=== PATIENT | female | born 1955 | race Caucasian/White ===

== ENCOUNTER 2021-10-08 19:21 | Inpatient (IN) | payer OTHER, MEDICAID ==
[~2021-10-08] VITALS: Ht 175.3 cm; Wt 99.8 kg
--- NOTE | ~2021-10-08 | CON ---
[address] [address] CONSULTATION Name: SUNITA VENEGAS Room: [address] IN M.R.#: [id number] Admission: 10/08/21 Attend Phys: Sandro Olivo Discharge: Date of : 55 Report #: [id number] THIS REPORT FOR: cc: Scottie Sky Bradley L. DO Namin, Farid M. MD ~ cc: Scottie Sky DO DATE OF CONSULTATION: 10/09/2021 REQUESTING PHYSICIAN: Heath Cassidy MD REASON FOR CONSULTATION: Melena in stool and anemia. HISTORY OF PRESENT ILLNESS: This is a 65-year-old female who apparently had a syncopal episode at home. The patient was brought to Emergency Room with altered mental status. She was found to be anemic and was transfused with 2 units of packed RBC. She is currently hemodynamically stable. She is more alert and able to answer questions. She reports GERD, for which she takes etis-pwc-mphvgyr medication. She denies ever having any endoscopic evaluation. The patient also denies any abdominal pain, hematochezia, constipation or diarrhea. PAST MEDICAL HISTORY: Significant for history of diabetes mellitus, dyslipidemia, hypertension, back pain, coronary artery disease, status post stenting, gallbladder disease, status post cholecystectomy, umbilical hernia repair. ALLERGIES: SIGNIFICANT TO IBUPROFEN. SOCIAL HISTORY: The patient denies tobacco or alcohol use. FAMILY HISTORY: Noncontributory. PHYSICAL EXAMINATION: VITAL SIGNS: Reveals blood pressure of 140/69, respirations 16, pulse 102, temperature is 36.5 centigrade. GENERAL: The patient is stated age female who is somewhat confused, mildly tachycardic, but otherwise hemodynamically stable. ABDOMEN: Soft, nontender, nondistended. CARDIOVASCULAR: Regular rhythm, but tachycardic. LUNGS: Clear. NEUROLOGIC: The patient is alert, oriented, [place] [address] CONSULTATION Name: SUNITA VENEGAS Julee Room: [address]#: [id number] Admission: 10/08/21 Attend Phys: Sandro Olivo Discharge: Date of : 55 Report #: [id number] LABORATORY DATA: Reveal WBC of 16.6, hemoglobin 15.3, platelet is 233. INR is 1.2. Sodium 136, potassium 3.8, BUN is 65, creatinine 1.1, magnesium is 1.4, calcium 6.9, glucose 312. AST is 15, ALT 22, alkaline phosphatase 57, albumin is 2.2. IMAGING: CT of abdomen and pelvis was obtained. There is abdominal aortic aneurysm measuring 3 cm with some peripheral thrombus. There is no evidence of dissection or rupture. Right common iliac artery aneurysm with some peripheral thrombus also noted. There is moderate stenosis of the bifurcation of the bilateral common iliac arteries. There is high-grade stenosis or occlusion of the right superficial femoral artery at its origin. Diverticulosis was noted without any evidence of diverticulitis. ASSESSMENT AND PLAN: The patient with anemia requiring blood transfusion, who is hemodynamically stable. On admission, the patient's BUN and creatinine ratio was 65. This is suspect upper gastrointestinal bleed. We had started the patient on Protonix drip in the Emergency Room and we will proceed with upper endoscopy. We will treat causes of upper GI bleed once established. The patient also has never had a colonoscopy. If we do not find source of bleeding today, we will consider colonoscopy tomorrow. Otherwise, we will do colonoscopy as outpatient. By: 1522 1920Werner Shin MD /nt
[~2021-10-08 19:21] MED LIST: ASPIR 8181 MG PO; BACTRIM DS TAB1 EACH PO; CENTRUM SILVER1 EAC2 PO; FENOFIBRATE160 MG PO; FISH OIL 1,001000 M2 PO; GLIPIZIDE 10 MG10 MG PO; GLUCOPHAGE1000 MG PO; LIPITOR10 MG PO; METOPROLOL SUCC50 MG PO; NIZORAL120 ML TP; VOLTAREN 0.1% EY5 M1 OP
[2021-10-08 19:24] VITALS: BP 131/62
[2021-10-08] MEDS ORDERED: NEURONTIN100 MG PO (19:33)
[2021-10-08] MEDS ORDERED: FLEXERIL PO (19:34)
[2021-10-08 20:04] LABS: MCH 29.3 pg (26.0-34.0); MCHC 32.7 g/dL (28.0-37.0); MCV 89.4 fL (80.0-100.0); MPV 8.8 fl. (7.2-11.1); NUCLEATED RBCS 1 /100WBC; PLATELET COUNT* 232 thou/uL (150-400); RDW-CV 14.4 % (10.5-14.5); WBC 16.6 thou/uL (4.0-11.0)
[2021-10-08 20:06] LABS: HEMATOCRIT 16.1 % (37.0-47.0)
[2021-10-08 20:07] LABS: HEMOGLOBIN 5.3 gm/dL (12.0-15.0)
[2021-10-08 20:12] LABS: CALCIUM 6.9 mg/dL (8.5-10.1); POTASSIUM 3.8 mmol/L (3.5-5.1)
[2021-10-08 20:13] LABS: ALBUMIN 2.2 g/dL (3.4-5.0); MAGNESIUM 1.4 mg/dL (1.8-2.4)
[2021-10-08 20:21] LABS: INFLUENZA A ANTIGEN Negative (Negative); INFLUENZA B ANTIGEN Negative (Negative)
[2021-10-08 20:43] LABS: TOTAL BILIRUBIN 0.2 mg/dL (<0.1-1.0); TOTAL PROTEIN 4.4 g/dL (6.4-8.2)
[2021-10-08 20:53] LABS: ABSOLUTE LYMPHOCYTES 4.5 thou/uL (0.8-5.3); ABSOLUTE MONOCYTES 0.7 thou/uL (0.0-1.2); ABSOLUTE NEUTROPHILS 11.5 thou/uL (1.6-8.1)
[2021-10-08 20:54] LABS: PLATELET ESTIMATE ADEQUATE; POLYCHROMASIA Occasional
[2021-10-08 20:55] LABS: MICROCYTES Occasional
[2021-10-08 21:48] LABS: INR 1.2; PROTIME 11.8 Seconds (9.20-11.50)
[2021-10-09] VITALS (8 sets, daily range): BP systolic 116–152; BP diastolic 54–74
[2021-10-09 01:57] LABS: HEMATOCRIT 19.7 % (37.0-47.0); HEMOGLOBIN 6.9 gm/dL (12.0-15.0)
[2021-10-09 05:40] LABS: HEMOGLOBIN 7.6 gm/dL (12.0-15.0)
[2021-10-09 06:15] LABS: HEMATOCRIT 22.2 % (37.0-47.0)
[2021-10-09] MEDS ORDERED: ZOCOR20 MG PO (09:22)
[2021-10-09] MEDS ORDERED: TRAMADOL 50 MG50 MG PO (09:23)
--- NOTE | 2021-10-09 11:13 | EKG ---
[place] [address] ELECTROCARDIOGRAM REPORT Name: SUNITA VENEGAS Room: [place] [address] ADM IN ..#: [id number] Admission: 10/08/21 Attend Phys: Lizzette Dominguez Discharge: Date of : 55 Date of Service: 10/08/211928 Report #: [id number] THIS REPORT FOR: //name// [facility] ED Test Date: 2021-10-08 Test Time: 19:29:07 Pat Name: SUNITA VENEGAS Department: Room: [facility] Gender: F Quick Service Technician: YUN : 1955 Requested By: Alanis Ashley Order Number: [id number] MD: Niall Marquez Measurements Intervals [place] Rate: 112 P: GA: QRS: -26 QRSD: 98 T: 149 QT: 342 QTc: 467 Interpretive Statements Sinus rhythm at a mildly tachycardic rate Borderline left axis deviation Abnormal R-wave progression, early transition Nonspecific T abnormalities, lateral leads No previous ECG available for comparison Electronically Signed On 10-09-2021 11:13:28 STRENGTH AND CONDITIONING COACH by Niall Marquez [email or web address] <ELECTRONICALLY SIGNED> By: Niall Marquez MD, FAC 10/09/21 1113 28 28 Niall Marquez MD, FAC /EPI
[2021-10-10] VITALS (7 sets, daily range): BP systolic 107–160; BP diastolic 51–67
[2021-10-10 05:13] LABS: URINE BILIRUBIN NEGATIVE (Negative); URINE BLOOD TRACE (Negative); URINE CLARITY CLEAR; URINE COLOR YELLOW; URINE GLUCOSE-RANDOM TRACE (Negative); URINE KETONES TRACE (Negative); URINE LEUKOCYTES-REFLEX NEGATIVE (Negative); URINE NITRITE-REFLEX NEGATIVE (Negative); URINE PROTEIN NEGATIVE (Negative); URINE SPECIFIC GRAVITY 1.025 (1.005-1.030); URINE UROBILINOGEN 0.2 E.U./dl (0.2-1.0)
[2021-10-10 06:15] LABS: ABSOLUTE BASOPHILS 0.1 thou/uL (0.0-0.2); ABSOLUTE EOSINOPHILS 0.4 thou/uL (0.0-0.7); ABSOLUTE LYMPHOCYTES 3.1 thou/uL (0.8-5.3); ABSOLUTE MONOCYTES 0.9 thou/uL (0.0-1.2); ABSOLUTE NEUTROPHILS 7.4 thou/uL (1.6-8.1); BASOPHILS 0.5 %; EOSINOPHILS 3.1 %; HEMATOCRIT 20.5 % (37.0-47.0); LYMPHOCYTES 26.1 %; MCH 29.8 pg (26.0-34.0); MCHC 33.6 g/dL (28.0-37.0); MCV 88.9 fL (80.0-100.0); MONOCYTES 7.7 %; MPV 8.2 fl. (7.2-11.1); NUCLEATED RBCS 1 /100WBC; PLATELET COUNT* 273 thou/uL (150-400); POLYS 62.6 %; RBC 2.31 mil/uL (4.20-5.00); RDW-CV 14.7 % (10.5-14.5); WBC 11.8 thou/uL (4.0-11.0)
[2021-10-10 06:29] LABS: HEMOGLOBIN 6.9 gm/dL (12.0-15.0)
[2021-10-10 07:05] LABS: CALCIUM 8.2 mg/dL (8.5-10.1); CREATININE 0.8 mg/dL (0.6-1.3); POTASSIUM 3.5 mmol/L (3.5-5.1)
[2021-10-10 13:56] LABS: HEMATOCRIT 23.3 % (37.0-47.0); HEMOGLOBIN 7.9 gm/dL (12.0-15.0)
[2021-10-11] VITALS (7 sets, daily range): BP systolic 119–167; BP diastolic 57–73
[2021-10-11 09:48] LABS: ABSOLUTE BASOPHILS 0.1 thou/uL (0.0-0.2); ABSOLUTE EOSINOPHILS 0.3 thou/uL (0.0-0.7); ABSOLUTE LYMPHOCYTES 1.7 thou/uL (0.8-5.3); ABSOLUTE MONOCYTES 0.5 thou/uL (0.0-1.2); ABSOLUTE NEUTROPHILS 7.2 thou/uL (1.6-8.1); BASOPHILS 0.5 %; EOSINOPHILS 2.6 %; HEMATOCRIT 24.6 % (37.0-47.0); HEMOGLOBIN 8.3 gm/dL (12.0-15.0); LYMPHOCYTES 17.8 %; MCH 29.9 pg (26.0-34.0); MCHC 33.8 g/dL (28.0-37.0); MCV 88.6 fL (80.0-100.0); MONOCYTES 5.6 %; MPV 8.1 fl. (7.2-11.1); NUCLEATED RBCS 0 /100WBC; PLATELET COUNT* 303 thou/uL (150-400); POLYS 73.5 %; RBC 2.77 mil/uL (4.20-5.00); RDW-CV 15.1 % (10.5-14.5); WBC 9.8 thou/uL (4.0-11.0)
[2021-10-11 09:58] LABS: ALBUMIN 2.4 g/dL (3.4-5.0); CALCIUM 8.4 mg/dL (8.5-10.1); CREATININE 0.8 mg/dL (0.6-1.3); POTASSIUM 3.9 mmol/L (3.5-5.1); TOTAL BILIRUBIN 0.5 mg/dL (<0.1-1.0); TOTAL PROTEIN 5.2 g/dL (6.4-8.2)
[2021-10-12 04:34] VITALS: BP 136/65
[2021-10-12 05:07] LABS: ABSOLUTE EOSINOPHILS 0.4 thou/uL (0.0-0.7); ABSOLUTE LYMPHOCYTES 2.3 thou/uL (0.8-5.3); ABSOLUTE MONOCYTES 0.8 thou/uL (0.0-1.2); ABSOLUTE NEUTROPHILS 6.9 thou/uL (1.6-8.1); BASOPHILS 0.4 %; EOSINOPHILS 3.6 %; HEMATOCRIT 24.7 % (37.0-47.0); HEMOGLOBIN 8.6 gm/dL (12.0-15.0); LYMPHOCYTES 21.9 %; MCH 30.4 pg (26.0-34.0); MCV 86.9 fL (80.0-100.0); MONOCYTES 7.3 %; NUCLEATED RBCS 0 /100WBC; PLATELET COUNT* 331 thou/uL (150-400); POLYS 66.8 %; RBC 2.84 mil/uL (4.20-5.00); RDW-CV 15.2 % (10.5-14.5); WBC 10.3 thou/uL (4.0-11.0)
[2021-10-12 05:30] LABS: ALBUMIN 2.5 g/dL (3.4-5.0); CALCIUM 8.6 mg/dL (8.5-10.1); CREATININE 0.5 mg/dL (0.6-1.3); POTASSIUM 3.4 mmol/L (3.5-5.1); TOTAL BILIRUBIN 0.6 mg/dL (<0.1-1.0); TOTAL PROTEIN 5.3 g/dL (6.4-8.2)
[2021-10-12 08:00] VITALS: BP 150/74
[2021-10-12 13:33] VITALS: BP 150/78
[2021-10-12 16:21] VITALS: BP 149/82
[2021-10-12 20:00] VITALS: BP 151/76
[2021-10-13] VITALS: BP 141/61
[2021-10-13 04:00] VITALS: BP 141/74
[2021-10-13 08:00] VITALS: BP 148/90
[2021-10-13 12:00] VITALS: BP 141/79
--- NOTE | 2021-10-13 15:07 | PATH ---
[address] [address] PATHOLOGY RPT PROCEDURE Name: SUNITA ROCA Room: [address] IN .R.#: [id number] Admission: 10/08/21 Date of : 55 Discharge: Report #: [id number] Path Case #: [id number] [facility] Accession Number: [id number] . 01 Material submitted: . PART A: stomach - ANTRAL BIOPSY FOR H. PYLORI PART B: duodenum - DUODENAL ULCER BIOPSY . 01 Clinical history: . EGD IN OR . 02 Diagnosis: A. 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 . B. Duodenal ulcer biopsy: - Benign small intestinal mucosa with mild nonspecific active inflammation, negative for granulomas, viral inclusions and dysplasia. (MAURIZIO:charisse; 10/13/2021) . Special stain on A: H. pylori immuno QMS 10/13/2021 1322 Local . 02 Electronically signed: . Candido Teresa MD, Pathologist NPI- [id number] . 01 Gross description: . A. The specimen is received in formalin, labeled "Sunita Roca, antral biopsy for H. pylori". Received are 2 segments of pale adame tissue measuring 0.3 and 0.4 cm in maximum dimension. The specimen is entirely submitted in cassette A1. . B. The specimen is received in formalin, labeled "Sunita Roca, duodenal ulcer biopsy". Received is a single segment of pale adame tissue measuring 0.2 cm in maximum dimensions. The specimen is entirely submitted in cassette B1. ([facility]; 10/12/2021) NRI/NRI 10/12/2021 1553 Local . 02 Pathologist provided ICD-10: K29.50, K29.80 . 02 CPT . 527733, 822738, X45106 Specimen Comment: A courtesy copy of this report has been sent to [phone], [place] [address] PATHOLOGY RPT PROCEDURE Name: SUNITA ROCA Room: [address] IN [facility].#: [id number] Admission: 10/08/21 Date of : 55 Discharge: Report #: [id number] Path Case #: [id number] Specimen Comment: [id number], Specimen Comment: Report sent to , DR CARDOZO / DR ALLEN Performed at: [address] [facility] [address], [place], [place] [id number] MD Yogi Sales MD Phone: [phone] Performed at: [address] [facility] [address] [address], [place], [place] [id number] MD Candido Teresa MD Phone: [phone]
[2021-10-13 16:00] VITALS: BP 135/72
[2021-10-13 16:27] LABS: CHOLESTEROL 112 mg/dL (<200); HDL CHOLESTEROL 31 mg/dL (>40); LDL CHOLESTEROL 46 mg/dL (<100); TC:HDL 3.6 Ratio (Not establshd); TRIGLYCERIDE 177 mg/dL (<150); VLDL 35 mg/dL (<40)
[2021-10-13 16:28] LABS: SERUM ASSESSMENT Clear
[2021-10-13 20:00] VITALS: BP 148/78
[2021-10-14] VITALS: BP 145/68
[2021-10-14 04:29] VITALS: BP 148/72
[2021-10-14 08:27] VITALS: BP 143/75
[2021-10-14 10:37] LABS: ABSOLUTE BASOPHILS 0.1 thou/uL (0.0-0.2); ABSOLUTE EOSINOPHILS 0.3 thou/uL (0.0-0.7); ABSOLUTE LYMPHOCYTES 1.7 thou/uL (0.8-5.3); ABSOLUTE MONOCYTES 0.5 thou/uL (0.0-1.2); ABSOLUTE NEUTROPHILS 3.3 thou/uL (1.6-8.1); BASOPHILS 0.9 %; EOSINOPHILS 4.8 %; HEMATOCRIT 23.3 % (37.0-47.0); HEMOGLOBIN 7.9 gm/dL (12.0-15.0); LYMPHOCYTES 28.3 %; MCH 30.1 pg (26.0-34.0); MCHC 33.7 g/dL (28.0-37.0); MCV 89.2 fL (80.0-100.0); MONOCYTES 8.9 %; MPV 7.8 fl. (7.2-11.1); NUCLEATED RBCS 0 /100WBC; PLATELET COUNT* 358 thou/uL (150-400); POLYS 57.1 %; RBC 2.61 mil/uL (4.20-5.00); RDW-CV 15.6 % (10.5-14.5); WBC 5.8 thou/uL (4.0-11.0)
[2021-10-14 10:46] LABS: ALBUMIN 2.2 g/dL (3.4-5.0); CALCIUM 8.3 mg/dL (8.5-10.1); CREATININE 0.9 mg/dL (0.6-1.3); POTASSIUM 3.4 mmol/L (3.5-5.1); TOTAL BILIRUBIN 0.2 mg/dL (<0.1-1.0); TOTAL PROTEIN 4.9 g/dL (6.4-8.2)
[2021-10-14 12:00] VITALS: BP 139/79
[2021-10-14 17:41] VITALS: BP 144/75
[2021-10-14 20:00] VITALS: BP 136/75
[2021-10-15] VITALS: BP 149/72
[2021-10-15 04:00] VITALS: BP 159/81
[2021-10-15 07:58] VITALS: BP 153/80
[2021-10-15 08:41] VITALS: BP 153/80
--- NOTE | 2021-10-15 09:17 | EKG ---
[place] [address] ELECTROCARDIOGRAM REPORT Name: SUNITA VENEGAS Room: [address] ADM IN M.R.#: [id number] Admission: 10/08/21 Attend Phys: Lizzette Dominguez Discharge: Date of : 55 Date of Service: 10/15/21 0536 Report #: [id number] THIS REPORT FOR: //name// [facility] Test Date: 2021-10-15 Test Time: 05:36:22 Pat Name: SUNITA VENEGAS Department: Room: [address] Gender: F Goring Cutter: CJ : 1955 Requested By: Martínez Hewitt Order Number: [id number] Reading MD: Rogelio Ness Measurements Intervals [place] Rate: 89 P: 59 [place]: 185 QRS: -29 QRSD: 104 T: 47 QT: 384 QTc: 468 Interpretive Statements Sinus rhythm Ventricular premature complex Borderline left axis deviation Compared to ECG 10/08/2021 19:29:07 Ventricular premature complex(es) now present T-wave abnormality no longer present Electronically Signed On 10-15-2021 9:17:43 FOLDER STITCHER OPERATOR by Rogelio Ness [email or web address] <ELECTRONICALLY SIGNED> By: Rogelio Ness MD, FACC 10/15/21 0917 0536 0536 Rogelio Ness MD, FAC /EPI
[2021-10-15 11:16] LABS: HEMATOCRIT 25.4 % (37.0-47.0); HEMOGLOBIN 8.3 gm/dL (12.0-15.0); MCH 29.4 pg (26.0-34.0); MCHC 32.7 g/dL (28.0-37.0); MPV 8.3 fl. (7.2-11.1); RBC 2.82 mil/uL (4.20-5.00); RDW-CV 15.5 % (10.5-14.5); WBC 6.5 thou/uL (4.0-11.0)
[2021-10-15] MEDS ORDERED: PROTONIX40 M2 PO (12:07)
[2021-10-15] MEDS ORDERED: CARAFATE 1 GM TA1 G1 PO (12:07)
--- NOTE | 2021-10-16 11:37 | EEG ---
[address] [address] EEG STUDY REPORT Name: SUNITA VENEGAS Room: [address] IN .R.#: [id number] Admission: 10/08/21 Attend Phys: Sandro Olivo Discharge: 10/15/21 Date of : 55 Report #: [id number] THIS REPORT FOR: cc: Scottie Sky Bradley L. DO Khosla,Kevin Rogers MD ~ DATE OF SERVICE: 10/13/2021 This patient is being evaluated for altered mental status. EEG was done by placing the electrode by standard 10-20 system of electrode placement. Both referential and sequential montages were used for recording. Background activity in this patient's EEG is about 9 Hz and 20 microvolt. Photic stimulation is unremarkable. Large portion of this record was obtained when the patient was asleep and thus, associated with bilateral slowing and vertex sharp waves. Throughout the record, no active epileptiform activity was noticed. IMPRESSION: This patient's EEG is intermixed with some theta range slowing on both sides. This is a nonspecific abnormality which can occur with drowsiness effect of psychotropic medication, dementia, etc. Clinical correlation is recommended. <ELECTRONICALLY SIGNED> By: Kevin Harvey MD 10/16/21 1137 1208 1237Kevin Harvey MD /praful
== END 2021-10-15 12:15 | disposition left against medical advice (07) | DRG 377 ==
LOC: M.ERS 19:21 → M.TBA-ER 21:36 → M.TBA 10-09 15:00 → M.2W 10-09 18:05
PROVIDERS: Emergency Medicine; Internal Medicine; Psychiatry & Neurology Neuromuscular Medicine; ADMIT Internal Medicine; ATTEND Internal Medicine
PROC: 0DB68ZX Excision of Stomach, Via Natural or Artificial Opening Endoscopic, Diagnostic (ICD-10-PCS; 2021-10-08)
PROC: 30233N1 Transfusion of Nonautologous Red Blood Cells into Peripheral Vein, Percutaneous Approach (ICD-10-PCS; principal; 2021-10-09)
PROC: 0W3P8ZZ Control Bleeding in Gastrointestinal Tract, Via Natural or Artificial Opening Endoscopic (ICD-10-PCS; 2021-10-13)
PROC: 0DB98ZX Excision of Duodenum, Via Natural or Artificial Opening Endoscopic, Diagnostic (ICD-10-PCS; 2021-10-13)
DX: K27.4 Chronic or unspecified peptic ulcer, site unspecified, with hemorrhage (principal); G93.41 Metabolic encephalopathy; D62 Acute posthemorrhagic anemia; E11.65 Type 2 diabetes mellitus with hyperglycemia; I25.10 Atherosclerotic heart disease of native coronary artery without angina pectoris; K44.9 Diaphragmatic hernia without obstruction or gangrene; Z20.822 Contact with and (suspected) exposure to COVID-19; Z53.29 Procedure and treatment not carried out because of patient's decision for other reasons; Z88.8 Allergy status to other drugs, medicaments and biological substances; Z79.4 Long term (current) use of insulin; Z95.5 Presence of coronary angioplasty implant and graft; Z87.891 Personal history of nicotine dependence